=== PATIENT | female | born 1940 | race Caucasian/White ===

== ENCOUNTER → 2023-06-16 12:36 | Outpatient (REF) | payer MEDICARE, BC, SELFPAY | LOC: HWRAD 12:36 | PROVIDERS: ATTENDING PHYSICIAN Emergency Medicine | DX: M25.559 Pain in unspecified hip (principal) | CPT/HCPCS: 73502 ==

== ENCOUNTER → 2023-10-04 06:04 | Outpatient (REF) | payer MEDICARE, BC, SELFPAY | LOC: HWCARD 06:04 | PROVIDERS: ATTENDING PHYSICIAN Orthopaedic Surgery; FAMILY PHYSICIAN Emergency Medicine | DX: Z01.818 Encounter for other preprocedural examination (principal) | CPT/HCPCS: 93005 ==

== ENCOUNTER → 2023-10-18 11:12 | Outpatient (REF) | payer MEDICARE, BC, SELFPAY | LOC: HWRAD 11:12 | PROVIDERS: ATTENDING PHYSICIAN Nurse Practitioner Adult Health; FAMILY PHYSICIAN Emergency Medicine | DX: C83.00 Small cell B-cell lymphoma, unspecified site (principal); R10.9 Unspecified abdominal pain | CPT/HCPCS: 71260; 74177; Q9967 ==

== ENCOUNTER 2024-01-07 18:24 | Inpatient (IN) | payer MEDICARE, BC, SELFPAY ==
[2024-01-07 14:16] VITALS: BP 143/63; BMI 29.6
[2024-01-07 14:27] VITALS: BP 143/63
--- NOTE | 2024-01-07 14:47 | ED.GENMED ---
History of Present Illness
General
Chief Complaint: Musculo-Skeletal Complaint
Time Seen by Provider: 01/07/24 14:19
History of Present Illness
History of Present Illness:
83-year-old female with hypertension presents to the emergency department for evaluation of sudden onset of left hip pain. This morning. She has severe difficulty moving the hip secondary to pain. She is just over 2 months status post left
replacement performed by Dr. Sousa. States she had been doing well and had no pain up until this morning. Denies any falls or trauma. No fevers, chills, or night sweats.
Review of Systems
Review of Systems
Allergies reviewed?: Yes
All Other Systems: ROS reviewed and negative except as documented in HPI and ROS
Phy Exam
Physical Exam
Physical Exam:
GEN: Well appearing, NAD, WDWN
HEENT: Oral mucosa moist, no scleral icterus
Cardiac: Regular rate
Lung: No respiratory distress, no tachypnea
MSK: Moderate pain with passive flexion as well as internal/external rotation of the left hip. There is firmness without erythema or warmth to the inferior buttock region
Skin: Good color, no pallor or jaundice, no rashes
Neuro: AO x3, moves all extremities freely
Psych: Calm, cooperative
Course
Orders/Labs/Results
Orders:
Orders
01/07/24 14:46
Lower Ext left w Contrast CT [CT Lower Ext W/iv Cont Lt] Urgent
Comment:
Reason For Exam: L hip pain, ZOILA 10/23, ? fluid collection
01/07/24 15:01
CRP [C-Reactive Protein] Urgent
Complete Blood Count/With Diff Urgent
Comprehensive Metabolic Panel Urgent
ESR [Erythrocyte Sed Rate] Urgent
01/07/24 15:09
Morphine Sulfate 4 mg IV NOW STA
01/07/24 17:42
Admit/Transfer Patient As Directed
Co-Sign Provider:
Level of Care: Inpatient admission
Assign to:: Medical/Surgical
Physician / Group: booker
Diagnosis: intramuscular hematoma
Reason for Hospitalization: intramuscular hematoma
Expected length of stay greater than two midnights?: Yes
ELOS- Estimated Length of Stay in days: 2
I certify the patient meets the requirements for IP care: Yes
PRN Pain Medication Management As Directed
May give lesser potent ordered pain med per pt: Yes
preference::
Protocol:: Medication orders for pain may be administered in a
manner that supports deferring to patient preference
when the pt is:
- Requesting an ordered lesser potent pain medication.
Least to most potent pain medications are defined
as: acetaminophen < NSAID < tramadol < opioids
(morphine, oxycodone, hydromorphone).
- Requesting a lesser dose of the same medication IF
ORDERED.
- Requesting a less intrusive route of administration
if both routes are prescribed by the provider (PO <
IV).
01/07/24 17:43
Code Status As Directed
Resuscitation Status: Full Code
Abnormal Lab Results
01/07/24
15:01
RBC 3.81 L 10^6/uL
(4.20-5.40)
Hgb 11.7 L g/dL
(12.0-16.0)
Hct 34.2 L %
(37.0-47.0)
Absolute Neuts (auto) 7.7 H 10^3/uL
(1.4-6.5)
Absolute Lymphs (auto) 0.8 L 10^3/uL
(1.2-3.4)
Absolute Monos (auto) 0.8 H 10^3/uL
(0.1-0.6)
Neutrophils % 81.2 H %
(42.2-75.2)
Lymphocytes % 8.8 L %
(20.5-51.1)
Glucose 125 H mg/dl
(70-99)
C-Reactive Protein 22.70 H mg/L
(0.0-10.00)
Total Protein 5.9 L g/dl
(6.3-8.2)
01/07/24 15:01
01/07/24 15:01
Vital Signs
Initial and Last Documented VS:
Initial Vital Signs
Temp Pulse Resp BP Pulse Ox
98.5 F 81 18 143/63 95
01/07/24 14:16 01/07/24 14:16 01/07/24 14:16 01/07/24 14:16 01/07/24 14:16
Last Documented Vital Signs
Temp Pulse Resp BP Pulse Ox
98.5 F 81 18 140/64 96
01/07/24 14:16 01/07/24 14:16 01/07/24 14:16 01/07/24 16:56 01/07/24 17:15
MDM/Problems Addressed
MDM/Problems Addressed:
Although the fluid collection is suggestive of a hematoma on imaging the patient had no traumatic injuries or sudden muscular strains to suggest a hematoma. As she is unable to bear weight on the affected extremity we will admit her for IV
aspiration with fluid cultures and Gram stain, no antibiotics given so as not to disrupt fluid sampling.
*Critical Care Note
Total Time (30-74mins, 75-104mins- exclusive of procedures): Not Applicable
ED Attending Note
-
Portions of this chart may have been created with voice recognition software.� Occasional wrong word or��sound alike� substitutions may have occurred due to the inherent limitations of voice recognition software.
Discharge Plan
Departure
Patient Disposition: Admit
Date of Disposition: 01/07/24
Time of Disposition: 17:16
Admit to: Med/Surg
Presentation/result/management discussed w/ accepting MD/DO: Hospitalist
Discharge Problem:
Acute pain of left hip, r/o septic left hip prosthesis
Interventions
Interventions:
*Risk Screen - Suicide Last Done: 01/07/24 14:16
*General Assessment Last Done: 01/07/24 14:16
*Neglect/Abuse Screening Last Done: 01/07/24 14:16
ED- Fall Risk Assessment Last Done: 01/07/24 14:16
*ED COVID-19 Vaccine History Last Done: 01/07/24 14:16
ED-Musculoskeletal Assessment Last Done: 01/07/24 14:16
[2024-01-07 15:00] VITALS: BP 125/65
[2024-01-07] MEDS: MORPHINE SULFATE 4 MG IV (15:15)
[2024-01-07 15:17] LABS: % Basophils 0.4 % (0-2); % Eosinophils 0.5 % (0-6); % Immature Granulocytes 0.3 % (0-0.5); % Lymphocytes 8.8 % (20.5-51.1); % Monocytes 8.8 % (1.7-9.3); % Neutrophils 81.2 % (42.2-75.2); Absolute Eosinophils 0.1 10^3/uL (0-0.7); Absolute Lymphocytes 0.8 10^3/uL (1.2-3.4); Absolute Monocytes 0.8 10^3/uL (0.1-0.6); Absolute Neutrophils 7.7 10^3/uL (1.4-6.5); Hematocrit 34.2 % (37.0-47.0); Hemoglobin 11.7 g/dL (12.0-16.0); Mean Corp Hgb Conc. 34.2 g/dL (33.0-37.0); Mean Corpuscular Hgb 30.7 pg (27.0-31.0); Mean Corpuscular Volume 89.8 fL (81.0-99.0); Mean Platelet Volume 10.2 fL (7.4-10.4); Nucleated Red Blood Cells % 0 %; Platelet Count 181 10^3/uL (130-400); Red Blood Cell Count 3.81 10^6/uL (4.20-5.40); Red Cell Dist. Width 12.9 % (11.5-14.5); White Blood Cell Count 9.4 10^3/uL (4.8-10.8)
[2024-01-07 15:25] LABS: Erythrocyte Sed Rate 10 mm/hour (0-20)
[2024-01-07 15:33] LABS: ALT (SGPT) 14 U/L (0-35); AST (SGOT) 19 U/L (14-36); Alkaline Phosphatase 62 U/L (38-126); Blood Urea Nitrogen 15 mg/dl (7-17); Calcium 8.8 mg/dl (8.4-10.2); Carbon Dioxide 24 mmol/L (22-30); Chloride 105 mmol/L (98-107); Estimated Creatinine Clearance 69 ml/min; Glucose 125 mg/dl (70-99); Potassium 4.3 mmol/L (3.5-5.1); Sodium 140 mmol/L (135-145); Total Bilirubin 0.5 mg/dl (0.2-1.3); Total Protein 5.9 g/dl (6.3-8.2); eGFR > 60.00
[2024-01-07 16:56] VITALS: BP 140/64
--- NOTE | 2024-01-07 17:45 | HPS.HSE ---
Family Physician
-
Family Physician: * NONE
Chief Complaint
-
left hip pain
History of Present Illness
83-year-old female past medical history of hypertension, presenting with sudden onset of left hip pain which started this morning. Has been having difficulty moving the hip secondary to pain. She had left hip replacement performed by Dr. Sousa 2
months ago. She had been doing well without any pain until this point. She denies any falls or trauma. Denies fevers or chills or night sweats.
She drinks alcohol occasionally on the weekends. Denies smoking.
Medical History
Past Medical History
Past Medical History: Reports Other ( hypertension)
Past Surgical History: Reports Other (left hip surgery )
Social History
Tobacco: Non-smoker
Alcohol: Occasional
Drug: None
Family History
Family History: Not pertinent
Allergies / Home Medications
Allergies reflects when Allergies were last updated in [employer].
Home Medications with original date entered in [employer]
Allergy/Medication List:
Allergies
Allergy/AdvReac Type Severity Reaction Status Date / Time
codeine Allergy Unknown Vomiting Verified 01/07/24 15:10
Penicillins Allergy Unknown Unknown Verified 01/07/24 15:11
Home Medications
aspirin 81 mg capsule 81 mg PO DAILY 01/07/24
losartan 25 mg tablet 25 mg PO 2XD 01/07/24
Review of Systems
-
History Source: Patient
A 12 point ROS was completed and negative except as noted: Yes
Constitutional: Reports No Symptoms
EENT: Reports No Symptoms
Respiratory: Reports No Symptoms
Cardiac: Reports No Symptoms
Abdomen/GI: Reports No Symptoms
: Reports No Symptoms
Musculoskeletal: Reports No Symptoms
Skin: Reports No Symptoms
Neurological: Reports No Symptoms
Endocrine: Reports No Symptoms
Hematologic/Lymphatic: Reports No Symptoms
Psych: Reports No Symptoms
Physical Exam
Vital Signs
Vital Signs
Temp Pulse Resp BP Pulse Ox
98.5 F 81 18 140/64 96
01/07/24 14:16 01/07/24 14:16 01/07/24 14:16 01/07/24 16:56 01/07/24 17:15
Physical Exam
General: Well Developed, Well Nourished and No Apparent Distress
HEENT: NormoCephalic, Moist mucous membranes and Atraumatic
Respiratory: Clear
Cardiac: S1/S2 and Regular Rhythm; No Murmur or Rub
GI: Soft, Non Tender, Non Distended and Normal Bowel Sounds; No Organomegaly
Rectal: Deferred by Provider
Musculoskeletal: No Clubbing, No Cyanosis, No Edema and Other (left hip tenderness, swelling )
Skin: No Rash
Neuro: Nonfocal/grossly intact
Laboratory Results
-
01/07/24 15:01
01/07/24 15:01
Laboratory Results
Total Bilirubin 0.5 mg/dl (0.2-1.3) 01/07/24 15:01
AST 19 U/L (14-36) 01/07/24 15:01
ALT 14 U/L (0-35) 01/07/24 15:01
Alkaline Phosphatase 62 U/L (38-126) 01/07/24 15:01
Data Reviewed
-
Lab Data: Labs Reviewed by me
Old Records: Reviewed
Impression/Plan
-
IMPRESSION:
PLAN:
# Intramuscular hematoma versus abscess of left hip/proximal thigh
-As per CT scan there is a large fluid collection within posterior lateral deep soft tissues of the left hip/proximal thigh up to 7.4 x 8.9x 13.4 cm likely due to muscular hematoma
-Does not seem to be related to the hip surgery
-IR consulted for aspiration
-Hold aspirin for now
-Tylenol, Dilaudid for pain as needed
Left hip replacement 2 months ago
Essential hypertension
-Continue losartan
Full code
DVT prophylaxis�SCDs
Regular diet
[2024-01-07 20:17] VITALS: BP 171/74; BMI 28.8
[2024-01-07] MEDS: COZAAR 25 MG PO (21:38)
[2024-01-07] MEDS: DILAUDID 0.5 MG IV (22:02)
--- NOTE | 2024-01-07 22:30 | PTCARENOTE ---
Receive pt from ER. Pt alert oriented X3, states that she has left hip pain (710). Pt was able to pivot from the stretcher in the room to her bed. Pt states that she can't bear weight on the left foot because of the pain. Pt oriented to the room,
call dent within reach. HE=712/74, HR=82, ItZ7=650% on RA. Repeat EQ=266/73, HR=81. Pt given Dilaudid for pain. Couple minutes thereafter, pt complains that Dilaudid gave her headache, upset stomach and nausea. MANAGER [employer]NA[employer] made aware, ordered Zofran for
nausea. Pt refused to take medicine, states 'I don't want to take any more medicine'. Pt states that she had the same SX when was given morphine in ER, but the SX related to Dilaudid are more severe. Pt also complains that she didn't get any food
while in ER. A sandwich was offered to the pt, but pt did like that sandwich. Offered to give the pt other alternatives like jello, apple juice, crackers. Pt refused and wants to be left alone and try to lay down. Check on the pt in couple minutes,
pt was sleeping with a loud snoring. Will continue to monitor the pt.
[2024-01-08] VITALS: BP 142/82
[2024-01-08 07:17] VITALS: BP 122/56
[2024-01-08 07:51] LABS: % Basophils 0.4 % (0-2); % Eosinophils 1.1 % (0-6); % Immature Granulocytes 0.3 % (0-0.5); % Lymphocytes 10.6 % (20.5-51.1); % Neutrophils 77.6 % (42.2-75.2); Absolute Eosinophils 0.1 10^3/uL (0-0.7); Absolute Lymphocytes 0.8 10^3/uL (1.2-3.4); Absolute Monocytes 0.8 10^3/uL (0.1-0.6); Absolute Neutrophils 6.1 10^3/uL (1.4-6.5); Hematocrit 29.2 % (37.0-47.0); Hemoglobin 9.7 g/dL (12.0-16.0); Mean Corp Hgb Conc. 33.2 g/dL (33.0-37.0); Mean Corpuscular Hgb 29.6 pg (27.0-31.0); Mean Platelet Volume 10.2 fL (7.4-10.4); Nucleated Red Blood Cells % 0 %; Platelet Count 172 10^3/uL (130-400); Red Blood Cell Count 3.28 10^6/uL (4.20-5.40); White Blood Cell Count 7.9 10^3/uL (4.8-10.8)
[2024-01-08 08:22] LABS: ALT (SGPT) 11 U/L (0-35); AST (SGOT) 16 U/L (14-36); Albumin 3.7 g/dl (3.5-5.0); Alkaline Phosphatase 54 U/L (38-126); Blood Urea Nitrogen 14 mg/dl (7-17); Calcium 8.8 mg/dl (8.4-10.2); Carbon Dioxide 28 mmol/L (22-30); Chloride 103 mmol/L (98-107); Estimated Creatinine Clearance 59 ml/min; Glucose 124 mg/dl (70-99); Sodium 139 mmol/L (135-145); Total Bilirubin 0.5 mg/dl (0.2-1.3); Total Protein 5.4 g/dl (6.3-8.2); eGFR > 60.00
[2024-01-08] MEDS: COZAAR 25 MG PO ×2 (08:43→20:54)
--- NOTE | 2024-01-08 08:52 | W.PN.UPDATE ---
Update Note
Progress Note Update
Patient seen and examined with Jyoti Ghotra PA-C
Acute onset of left hip pain and difficulties with weight bearing without any trauma
CT scan negative for fracture. But, there is a significant fluid collection
Clinically, there is no erythema, no warmth, no pain with ROM of the hip. Able to straight leg raise
Agree with IR aspiration of the fluid and evaluate for cell count, gram stain and cultures
Hold antibiotics for now
--- NOTE | 2024-01-08 09:08 | CON.ORTHO ---
Consultation
-
Date/Time Consultation Requested: 01/07/2024
Date/Time Consultation Performed: 01/08/2024
Requesting Provider: Chris Mitchell PA-C
Performing Provider: Jyoti Ghotra PA-C for Dr. Clive Major
Reason for Consultation: Left hip hematoma s/p left ZOILA
Consultation - Orthopedics
History
HPI: This is an 83 year old female who woke up yesterday morning with significant left hip pain and inability to ambulate. She is now s/p left ZOILA with Dr. Sousa on 10/24/2023. She admits her rehab has been going smoothly and she was just
discharged from PT on . She denies any falls or trauma to her left hip, but did do some yard work on Tuesday that included string trimming weeds along her [place]. She woke on on Tuesday with significant pain and presented to the ED for
further evaluation. Labs have been normal with exception of mildly elevated CRP and she denies any pain, fever or chills prior to yesterday morning. A CT scan was performed, which demonstrated a large collection of fluid, which radiology feels to
be c/w a hematoma. She was admitted to the hospital due to her inability to ambulate and to proceed with IR aspiration of her left hip fluid collection. She reports her pain and swelling have improved since admission.
Past medical history: Significant for HTN.
Past surgical history: Left ZOILA.
Social history: Denies tobacco use. Occasional alcohol use. Lives at home with family.
Review of systems: All systems reviewed and negative except for those mentioned in HPI.
Allergies / Home Medications
Allergy/AdvReac Type Severity Reaction Status Date / Time
codeine Allergy Unknown Vomiting Verified 01/07/24 15:10
Penicillins Allergy Unknown Unknown Verified 01/07/24 15:11
�Medication �Instructions �Recorded
aspirin 81 mg capsule 81 mg PO DAILY 01/07/24
losartan 25 mg tablet 25 mg PO 2XD 01/07/24
Vital Signs / Lab Results
Temp Pulse Resp BP Pulse Ox
97.7 F 77 16 122/56 96
01/08/24 07:17 01/08/24 07:17 01/08/24 07:17 01/08/24 07:17 01/08/24 07:17
01/08/24 07:21
01/08/24 07:21
Physical examination:
General: WD/WN female in no acute distress. AAO x 4.
HEENT: AT/NC, neck supple.
Lungs: non labored breathing on room air. No audible wheezing.
Heart: RRR.
Left hip: Incision over lateral aspect of hip is c/d/i. No erythema or fluctuance. Diffuse tender over gluteal muscles and posterior thigh. No ecchymosis. ROM with mild pain on ER, otherwise full and pain free. Calf soft and non tender to
palpation. N/v intact distally.
Radiographic studies:
CT scan of the left hip shows evidence of a large mixed attenuation fluid collection within the posterolateral deep soft tissues of the left hip and proximal thigh that measures 7.4x8.9x13.4 cm likely representing an intramuscular hematoma.
Assessment / Plan
Assessment: Left hip pain, likely intramuscular hematoma.
Plan: Patient seen in tandem with Dr. Major. Yadira's imaging demonstrated an intramuscular fluid collection of her left hip/proximal thigh. Radiology believes the appearance is c/w hematoma, however, with her recent left ZOILA, we will proceed with
IR aspiration of the fluid collection and have the fluid sent for cell count, crystals, and C/S. She does not have an elevated WBC and CRP is only mildly elevated, so low concern for infection at this time. We will hold initiation of any
antibiotics until aspiration has been performed. She does report improvement in symptoms overnight, so I recommend continued ice and activity modification. She may do PT with weight bearing to tolerance, using assistive device if needed. We will
follow along with results of the aspiration to discuss continued recommendations.
--- NOTE | 2024-01-08 10:29 | W.PN.HOSP.TC ---
Today's Communication/Plan
-
see bold
Assessment / Plan
Assessment / Plan
Gen: NAD, awake and alert
Eyes: EOMI, PERRLA, no scleral icterus.
Neck: supple.
CV: RRR, +S1/S2, no m/r/g.
Resp: CTAB, no rales, wheezes, or rhonchi.
Abd: +BS, soft, NT, ND
Skin: No rashes.
Neuro: CN 2-12 intact, non-focal.
Psych: Normal mood and affect.
CT L-hip: Large mixed attenuation fluid collection within the posterolateral deep soft tissues of the left hip/proximal thigh, measuring up to 7.4 x 8.9 x 13.4 cm, likely intramuscular hematoma. The left hip prosthesis appears grossly intact. No
acute fractures or dislocation. Evaluation of additional soft tissue structures such as tendons and ligaments is limited by CT. Grossly, no abnormalities are seen.
Intramuscular hematoma versus abscess of left hip/proximal thigh:
-h/o L ZOILA 2 months ago
-As per CT scan there is a large fluid collection within posterior lateral deep soft tissues of the left hip/proximal thigh up to 7.4 x 8.9x 13.4 cm likely due to muscular hematoma
-Does not seem to be related to the hip surgery
-IR to perform joint aspiration today
-Holding aspirin for now
-Tylenol, Dilaudid for pain as needed
-appreciate ortho, no indication for orthopedic surgical intervention at this time. Dr. Major recommends holding off on abx.
-afebrile, no leukocytosis
Essential hypertension: Continue losartan
FULL/SCDs
Anticipated Discharge: 24 - 48 hours
Subjective/Interval History
-
Date of Service: January 08, 2024
Patient offers no new complaints.
Objective Data
-
Labs:
Laboratory Results
01/08/24
07:21
WBC 7.9
Hgb 9.7 L
Hct 29.2 L
Plt Count 172
Sodium 139
Potassium 4.0
Chloride 103
Carbon Dioxide 28
BUN 14
Creatinine 0.8
Glucose 124 H
Calcium 8.8
Total Bilirubin 0.5
AST 16
ALT 11
Alkaline Phosphatase 54
Vital Signs:
Vital Signs
Temp Pulse Resp BP Pulse Ox
97.7 F 77 16 122/56 96
01/08/24 07:17 01/08/24 07:17 01/08/24 07:17 01/08/24 07:17 01/08/24 07:17
[2024-01-08 11:20] VITALS: BP 111/50; BP_SYST 83
[2024-01-08 12:03] VITALS: BP 111/50; BP_SYST 83
--- NOTE | 2024-01-08 12:43 | CM ---
CM following re: discharge planning.
Reviewed pt's chart, met with pt.
Pt is an 83 year old female, admitted with primary dx of left hip pain.
Pt reports she lives with in a 2SH, 1 step to enter, has 2 children and [place]. Pt described herself as independent in all areas [employer]. No DME, VN or SNF history.
PT and OT will evaluate the pt to determine a level of care at discharge.
PCP: pt stated she does not have PCP and she does not want to have one.
Pharmacy: [facility]
d/C plan: most likely home with VN services if recommended by PT.
CM will follow with discharge plan updates as hospitalization progresses
[2024-01-08] MEDS: ULTRAM 50 MG PO ×2 (13:18→20:53)
[2024-01-08 15:00] VITALS: BP 112/51
[2024-01-08 23:12] VITALS: BP 115/47
[2024-01-09 08:34] VITALS: BP 121/45
[2024-01-09] MEDS: COZAAR 25 MG PO ×2 (09:11→21:28)
--- NOTE | 2024-01-09 10:21 | W.PN.UPDATE ---
Update Note
Progress Note Update
Patient feeling much better today than she has over the last 48 hours. Afeb. She was up walking around her room when I arrived. She was able to comfortably get herself back in the bed. Left hip exam essentially benign today. Aspirate from left
hip NGTD. would recommend activity as tolerated, possibly working with PT/OT prior to discharge. From an orthopedic standpoint we will continue to follow with the aspirate, but anticipate a discharge and outpatient follow-up.
--- NOTE | 2024-01-09 12:46 | W.PN.HOSP.TC ---
Today's Communication/Plan
-
follow gs/culture and ortho recs
DC planning in 24 hours
Assessment / Plan
Assessment / Plan
CT L-hip: Large mixed attenuation fluid collection within the posterolateral deep soft tissues of the left hip/proximal thigh, measuring up to 7.4 x 8.9 x 13.4 cm, likely intramuscular hematoma. The left hip prosthesis appears grossly intact. No
acute fractures or dislocation. Evaluation of additional soft tissue structures such as tendons and ligaments is limited by CT. Grossly, no abnormalities are seen.
Assessment:
Intramuscular hematoma versus abscess of left hip/proximal thigh:
-h/o L ZOILA 2 months ago
-As per CT scan there is a large fluid collection within posterior lateral deep soft tissues of the left hip/proximal thigh up to 7.4 x 8.9x 13.4 cm likely due to muscular hematoma
-Does not seem to be related to the hip surgery
-s/p IR aspiration 01/07 yielding 3 mL of old dark blood products. Cultures/GS NGTD.
-Holding aspirin for now
-Tylenol, Dilaudid for pain as needed
-appreciate ortho, no indication for orthopedic surgical intervention at this time. Dr. Major recommends holding off on abx.
-afebrile, no leukocytosis
-PT/OT
Essential hypertension: Continue losartan
DVT ppx: SCDs
Code: Full
Anticipated Discharge: Within 24 hours
Subjective/Interval History
-
Date of Service: January 09, 2024
reports some improvement in L hip/hematoma area pain
denies any new complaints otherwise
Objective Data
-
Vital Signs:
Vital Signs
Temp Pulse Resp BP Pulse Ox
98.2 F 64 18 121/45 97
01/09/24 08:34 01/09/24 09:11 01/09/24 08:34 01/09/24 09:11 01/09/24 08:34
I&O
01/08/24 01/09/24 01/10/24
06:59 06:59 06:59
Intake Total 1649
Balance 1649
Physical Exam
-
General: No Apparent Distress
HEENT: Normocephalic and Atraumatic
Respiratory: Negative Wheezes
Cardiac: Regular Rhythm and S1/S2
GI: Soft
Musculoskeletal: No Edema
Neuro: AO x 3
Psych: Calm
Data Reviewed
-
Total Time Spent with Patient (in minutes): 42
Labs: Labs Reviewed by me
[2024-01-09 15:20] VITALS: BP 117/70; PULSE 80; O2SAT 97
[2024-01-09 16:29] VITALS: BP 115/52
[2024-01-09] MEDS: TYLENOL 650 MG PO (22:30)
[2024-01-09 22:40] VITALS: BP 121/59
--- NOTE | 2024-01-10 06:30 | W.PN.UPDATE ---
Update Note
Progress Note Update
Patient seen and evaluated by orthopedic surgery this AM, resting comfortably in no acute distress. Patient reports that she is feeling much better. Aspirate from left hip without growth after 18 to 24 hours. Recommend activity as tolerated,
possibly working with PT/OT prior to discharge. From an orthopedic standpoint, we will continue to follow the aspirate, but anticipate discharge and outpatient follow-up. All questions were answered.
[2024-01-10 07:35] VITALS: BP 126/61
[2024-01-10 07:46] LABS: Hemoglobin 9.7 g/dL (12.0-16.0); Mean Corp Hgb Conc. 33.4 g/dL (33.0-37.0); Mean Corpuscular Hgb 30.1 pg (27.0-31.0); Mean Corpuscular Volume 90.1 fL (81.0-99.0); Mean Platelet Volume 10.2 fL (7.4-10.4); Platelet Count 178 10^3/uL (130-400); Red Blood Cell Count 3.22 10^6/uL (4.20-5.40); White Blood Cell Count 4.6 10^3/uL (4.8-10.8)
[2024-01-10 08:11] LABS: Blood Urea Nitrogen 18 mg/dl (7-17); Calcium 9.1 mg/dl (8.4-10.2); Carbon Dioxide 29 mmol/L (22-30); Chloride 104 mmol/L (98-107); Estimated Creatinine Clearance 53 ml/min; Glucose 99 mg/dl (70-99); Sodium 141 mmol/L (135-145); eGFR > 60.00
--- NOTE | 2024-01-10 08:18 | PN.CDI ---
CDI
- -
CDI:
Physician Documentation Request
Admit Date: 01/07/24 18:24
Dear Doctor Gabriel,
Clinical Indicators:
Patient admitted with left hip pain.
01/[address], 'Large mixed attenuation fluid collection within the posterolateral deep soft tissues of the left hip/proximal thigh, measuring up to 7.4 x 8.9 x 13.4 cm, likely intramuscular hematoma.'
01/08 PN, ' Intramuscular hematoma versus abscess of left hip/proximal thigh...-s/p IR aspiration 01/07 yielding 3 mL of old dark blood products. Cultures/GS NGTD. '
Hgb/Hct trend:
01/07/24 01/08/24
15:01 07:21
Hgb 11.7 L 9.7 L
Hct 34.2 L 29.2 L
Based on the above, could you clarify in the progress notes, the appropriate diagnosis, if significant, that supports the above abnormalities and additional evaluation, monitoring and/or treatment rendered:
Acute blood loss anemia
Other anemia, please specify
Abnormal lab values, clinically insignificant
Other, please specify
Use of terms such as suspected, likely, concern for, or probable (associated with a specific diagnosis that is being evaluated, monitored, or treated as if it exists) are acceptable and can be coded in the inpatient setting, when documented at the
time of discharge.
Thank you,
Brissa Mari RN BSN
CDI Specialist
available via tiger text
Please use your independent medical judgment in providing your response.
--- NOTE | 2024-01-10 08:35 | W.PN.HOSP.TC ---
Today's Communication/Plan
-
dc to home/vN
OP ortho f/u in 3 weeks
Assessment / Plan
Assessment / Plan
CT L-hip: Large mixed attenuation fluid collection within the posterolateral deep soft tissues of the left hip/proximal thigh, measuring up to 7.4 x 8.9 x 13.4 cm, likely intramuscular hematoma. The left hip prosthesis appears grossly intact. No
acute fractures or dislocation. Evaluation of additional soft tissue structures such as tendons and ligaments is limited by CT. Grossly, no abnormalities are seen.
Assessment:
Intramuscular hematoma versus abscess of left hip/proximal thigh:
-h/o L ZOILA 2 months ago
-As per CT scan there is a large fluid collection within posterior lateral deep soft tissues of the left hip/proximal thigh up to 7.4 x 8.9x 13.4 cm likely due to muscular hematoma
-Does not seem to be related to the hip surgery
-s/p IR aspiration 01/07 yielding 3 mL of old dark blood products. Cultures/GS NGTD x 48 hours.
-Holding aspirin going forward
-Tylenol, Tramadol for pain as needed
-appreciate ortho, no indication for orthopedic surgical intervention at this time. Dr. Major recommends holding off on abx.
-afebrile, no leukocytosis
-PT/OT - home VN
- OP Ortho f/u in 3 weeks
Essential hypertension: Continue losartan
Acute blood loss anemia
- No indication for transfusion
DVT ppx: SCDs
Code: Full
More than 30 minutes spent in discharge including
Final examination of the patient
Summarizing hospital stay
Instructions for continuing care to all relevant caregivers
Preparation of discharge records, prescriptions, and referral forms
Total time spent (in minutes): 41
Anticipated Discharge: Today
Subjective/Interval History
-
Date of Service: January 10, 2024
ambulating ok, denies any pain when resting
Objective Data
-
Labs:
Laboratory Results
01/10/24
07:07
WBC 4.6 L
Hgb 9.7 L
Hct 29.0 L
Plt Count 178
Sodium 141
Potassium 4.0
Chloride 104
Carbon Dioxide 29
BUN 18 H
Creatinine 0.9
Glucose 99
Calcium 9.1
Vital Signs:
Vital Signs
Temp Pulse Resp BP Pulse Ox
98.4 F 74 18 121/59 96
01/09/24 22:40 01/09/24 22:40 01/09/24 22:40 01/09/24 22:40 01/09/24 22:40
I&O
01/09/24 01/10/24 01/11/24
06:59 06:59 06:59
Intake Total 1650 / 1650 300 / 300
Balance 1650 / 1650 300 / 300
Physical Exam
-
General: No Apparent Distress
HEENT: Normocephalic and Atraumatic
Respiratory: Negative Wheezes
Cardiac: Regular Rhythm and S1/S2
GI: Soft
Genito-urinary: No Costovertebral Tender
Neuro: AO x 3
Hematologic / Lymphatic: No Lymphadenopathy
Psych: Calm
Data Reviewed
-
Total Time Spent with Patient (in minutes): 41
Labs: Labs Reviewed by me
[2024-01-10] MEDS: COZAAR 25 MG PO (09:46)
--- NOTE | 2024-01-10 10:35 | W.DS.TRANS ---
DC Summary - Or Nurse Manager
-
Discharge Instructions:
Discharge Diagnosis/Procedures intramuscular hematoma, recent ZOILA 2 months
prior. anemia from hematoma/blood loss
Diet Regular
Activity As tolerated,With Walker
Additional Activity with walker assistance
Driving Restrictions Not until seen by your Dr
Bathing Restrictions None
Other Services PT,OT,VN
Instructions:
Stand-Alone Forms:
Changes to Home Medications: Yes
Discharge Medications:
DC Medications w/original date entered in beqom
acetaminophen 325 mg tablet 650 mg (2 x 325 mg) PO Q4HPRN PRN mild pain/RO/temp> 100.4F #100 tabs 01/10/24
losartan 25 mg tablet 25 mg PO BID Blood Pressure #0 tabs 01/10/24
tramadol 50 mg tablet 50 mg PO Q6HPRN PRN MODERATE-SEVERE PAIN #20 tabs 01/10/24
Home Medication Changes
stop aspirin
Pending Results: No
Total time spent discharging patient (in min): 42
[2024-01-10 11:50] VITALS: BP 159/82
[2024-01-10 12:06] VITALS: BP 159/82
--- NOTE | 2024-01-10 13:02 | CM ---
Addendum entered by Merry Petty 01/10/24 15:47:
CM contacted Yadira who advised that Dr. Sousa's office would be able to identify which agency she had previously. Call to the office and advised she previously had [facility] services. Referral sent via [facility] per pt's request and they will
contact Yadira via telephone.
Original Note:
CM attempted to speak with Yadira prior to discharge today, however she had already scheduled an Uber ride home and was in a hurry. Call to Yadira and reviewed IMM; she gave verbal consent and declined receiving a copy of the form, as she is familiar
with it. Ai advised that she has caregivers from [facility] and had home care in the past, but unsure what agency provided the services. She is going to look for information and asked that I call back later this afternoon.
Yadira advised that she has seen her PCP in August and/or September 2023, Dr. Ruvalcaba. She did not want to put her on the record due to a disagreement with someone in the office. Yadira is agreeable to Dr. Ruvalcaba's oversight of home care services. I
called the office ([phone]) and spoke with Imani who will discuss with Dr. Ruvalcaba and call me back.
CM to continue to follow to determine choice of VN and physician oversight.
== END 2024-01-10 12:22 | disposition home health service (06) | DRG 605 ==
LOC: 4 EAST ACU 18:24
PROVIDERS: Physician Assistant; Radiology Vascular & Interventional Radiology; ADMITTING PHYSICIAN Hospitalist; ATTENDING PHYSICIAN Internal Medicine; EMERGENCY PHYSICIAN Emergency Medicine; OTHER PHYSICIAN Orthopaedic Surgery
PROC: 0S9B30Z Drainage of Left Hip Joint with Drainage Device, Percutaneous Approach (ICD-10-PCS; 2024-01-08)
DX: S70.02XA Contusion of left hip, initial encounter (principal); D62 Acute posthemorrhagic anemia; M96.840 Postprocedural hematoma of a musculoskeletal structure following a musculoskeletal system procedure; M97.02XA Periprosthetic fracture around internal prosthetic left hip joint, initial encounter; I10 Essential (primary) hypertension; Z96.642 Presence of left artificial hip joint; Y83.1 Surgical operation with implant of artificial internal device as the cause of abnormal reaction of the patient, or of later complication, without mention of misadventure at the time of the procedure
CPT/HCPCS: 10160; 73701; 76942; 80048; 80053; 85025; 85027; 85652; 86140; 87015; 87070; 87205; 96374; 97162; 97166; 99285; Q9967

== ENCOUNTER 2024-09-12 15:37 | Day surgery (SDC) | payer MEDICARE, BC, SELFPAY ==
[2024-09-12] VITALS (17 sets, daily range): BP systolic 118–167; BP diastolic 53–109; PULSE 66; O2SAT 95
--- NOTE | 2024-09-12 11:05 | ED.MUSCINJ ---
HPI-Injury
General
Chief Complaint: Musculo-Skeletal Complaint
Source: patient and ambulance crew
Exam Limitations: none
Time Seen by Provider: 09/12/24 10:53
Nursing documentation reviewed up to this point in time: agreed with
History of Present Illness-Injury
Initial Injury comments:
Note:
CHIEF COMPLAINT(S)
Left hip pain and possible dislocation.
HISTORY OF PRESENT ILLNESS
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 She presented following an incident during a yoga class where she was in a [place] 2 position with the leg extended,
which she commonly does. The leg suddenly collapsed, causing her to fall. She reports localized pain in the left hip with no pain elsewhere. The suspicion of hip dislocation was noted, and the plan is to confirm with an x-ray. The patient has a
history of fluid accumulation related to the hip surgery, previously causing issues.
The patient has expressed a significant level of discomfort localized to the hip and has requested pain relief. She is allergic to codeine, which causes nausea, and will be administered anti-nausea medication alongside Dilaudid for pain management.
CHRONIC MEDICAL CONDITIONS SIGNIFICANTLY AFFECTING CARE
Hypertension managed with ARBs.
History of lymphoma treated with chemotherapy about seven years ago. The patient takes aspirin as part of management post-chemotherapy.
ALLERGIES
Codeine - causes nausea.
PAST MEDICAL HISTORY
Lymphoma treated with chemotherapy about seven years ago.
PAST SURGICAL HISTORY
Left hip replacement for arthritis in October of the previous year by Dr. Sousa.
Bilateral cosmetic eyelid surgery.
SOCIAL HISTORY
Denies regular alcohol consumption, drinks occasionally.
Denies use of non-prescribed drugs..
MEDICATIONS
Losartan for hypertension.
Aspirin following lymphoma chemotherapy.
REVIEW OF SYSTEMS
- Musculoskeletal: Left hip pain, possible dislocation.
- Gastrointestinal: Nausea associated with codeine.
PHYSICAL EXAM
- Cardiac: Clear heart sounds with S1-S2, no murmur.
- Respiratory: Clear lung sounds.
- Musculoskeletal: Left hip internally rotated with no other signs of trauma; normal distal pulses in all extremities. No edema noted.
Nursing notes reviewed and vital signs reviewed.
PROBLEM LIST
Acute: Possible left hip dislocation.
Chronic: Hypertension, history of lymphoma.
PLAN
Obtain an x-ray to assess potential dislocation of the left hip.
Administer Dilaudid for pain management and anti-nausea medication to mitigate side effects from previous medications.
Execute sedation and reduction of hip dislocation following patient consent to the procedure.
DIFFERENTIAL DIAGNOSIS
The Differential Diagnosis includes, in no particular order and is not limited to:
1. Hip dislocation.
2. Fracture of the hip or pelvis.
3. Soft tissue injury or muscle strain.
4. Osteoarthritis exacerbation.
5. Trochanteric bursitis.
6. Avascular necrosis of the hip.
7. Recurrent hip replacement complications.
8. Hip joint infection.
9. Greater trochanteric pain syndrome.
10. Rheumatoid arthritis flare.
CARE-UPDATE
09/12/24 - 12:00
Patient reports that the medication is not providing relief. X-ray confirms a hip dislocation without fracture. Plan is to perform hip reduction under sedation. Patient informed about need for a ride home post-procedure, as Uber is not permitted.
Case management to assist due to patients caregiving responsibilities for spouse. Expecting a three-hour stay. Consent for sedation and possible use of blood products discussed and obtained, with emergency intubation being a rare possibility.
Patient has a cell phone to arrange transportation and needs to contact spouse.
CARE-UPDATE
09/12/24 - 13:[address] Crisostomo; patient will be taken to OR for closed reduction. Patient to remain NPO in preparation for the procedure. Unsuccessful reduction attempted in ED.
Disposition:
SUMMARY OF ENCOUNTER
The patient, an 84-year-old female with a history of left hip replacement, presented to the emergency department with concerns of a possible dislocation following an incident during a yoga class. An x-ray confirmed the left hip dislocation. Initial
treatment in the ED included pain management with Dilaudid and anti-nausea medication. A previous attempt at reduction in the ED was unsuccessful.
MANAGEMENT OF THE PATIENTS CARE WAS DISCUSSED WITH
Dr. Crisostomo was consulted, and it was decided to take the patient to the operating room for further evaluation and management of the dislocated hip.
PLAN
The plan is to perform a closed reduction of the left hip dislocation in the operating room.
INDEPENDENT INTERPRETATION OF TESTS
My independent interpretation of the x-ray confirms a left hip dislocation without fracture.
PROCEDURES
Patient is scheduled to be transferred to the operating room for a closed reduction of the left hip dislocation.
PATIENT EDUCATION AND COUNSELING
The patient was informed about the need for transportation post-procedure and arrangements due to caregiving responsibilities.
MEDICATION RECONCILIATION
The patient was administered Dilaudid for pain and anti-nausea medication during the ED visit.
MEDICAL DECISION MAKING
Number and Complexity of Problems Addressed: The patient presented with an acute issue of a left hip dislocation with a chronic history of hip replacement.
Data: X-ray results were analyzed to confirm the dislocation and impacted the treatment plan.
Risk: The patients care was influenced by potential hospitalization, social responsibilities, and procedure-related risks. Consent for sedation and possible use of blood products, along with transportation arrangements, were considered in the care
plan.
Phy Exam
Physical Exam
Physical Exam:
.
Injury Course
Orders/Labs/Results
Orders:
Orders
09/12/24 Breakfast
NPO
Allow oral meds: No
Allow clear liquids: No
09/12/24 11:03
HYDROmorphone [Dilaudid] 0.5 mg IV NOW STA
Ondansetron Injectable [Zofran] 4 mg IV NOW STA
09/12/24 11:04
IV Insert/Care/Rem.- Treatment PRN
Hip, Left 2-3 Views [CR Hip - LT w/wo Pel 2-3 Vw*] Urgent
Comment:
Reason For Exam: left hip pain while doing yoga
Include a pelvis x-ray?: Yes
09/12/24 12:01
Case Management Consult ONCE
Case Management Consult: VN/Home Care
Requested By:: PHYSICIAN
Comment: pt cares for at home, pt dislocated hip today, may need home health assistance
09/12/24 12:02
ASA Classification Routine
Propofol [Diprivan] 80 mg IV NOW STA
09/12/24 12:23
CR Hip - LT without Pel 1 Vw Urgent
Comment: portable room 28
Reason For Exam: Hip dislocation
09/12/24 13:01
CT Pelvis W/o Iv Contrast Urgent
Comment:
Reason For Exam: left hip pain
Procedures
Moderate Sedation
ASA Risk Score: Class II
Chart and allergies reviewed: Yes
Consent for anesthesia obtained: Yes
Time out completed (validating right patient & procedure): Yes
Moderate Sedation Start Time(when first medication is given): 12:15
History of difficult intubation: No
Airway free of obstruction: Yes
Patient has a gag reflex: Yes
Patient is able to open mouth: Yes
Patient has no dentures: Yes
Patient has no loose teeth: Yes
Medication administered by Provider during Moderate Sedation: IV Propofol (mg)
Total dose administered: 180
Time drug administered: 12:15
Moderate Sedation Procedure End Time: 12:35
Joint/Fracture Reduction
Left Hip:
Indication for procedure:: left hip dislocation
Procedure completed by: Mike
Consent form signed: Yes
Joint reduced: with anesthesia sedation
Anesthesia/sedation: Moderate sedation
Injury was: closed
Further treatement: needs further treatment
Post reduction exam: stable
Capillary Refill: normal
Normal distal neurovascular exam?: Yes
Peripheral Pulses: dorsalis pedis (left): 4+
*Critical Care Note
Total Time (30-74mins, 75-104mins- exclusive of procedures): Not Applicable
ED Attending Note
-
Portions of this chart may have been created with voice recognition software.� Occasional wrong word or��sound alike� substitutions may have occurred due to the inherent limitations of voice recognition software.
Discharge Plan
Departure
Patient Disposition: OR
Date of Disposition: 09/12/24
Time of Disposition: 13:02
Admit to: OR
Presentation/result/management discussed w/ accepting MD/DO: Orthopedics, Dr. Crisostomo
Patient with high blood pressure during this ER visit?: Yes
Condition: Good
Discharge Problem:
Closed dislocation of left hip
Prescriptions:
No Action
losartan 25 mg Tablet
25 mg PO BID Qty: 0 0RF
Referrals:
NONE,* [Family Provider, Internal Medicine]
Interventions
Interventions:
*General Assessment Last Done: 09/12/24 11:56
*Neglect/Abuse Screening Last Done: 09/12/24 10:35
ED-Musculoskeletal Assessment Last Done: 09/12/24 10:35
Discharge Date and Time
Print Language: BARBADIAN
[2024-09-12] MEDS: ZOFRAN 4 MG IV (11:07)
[2024-09-12] MEDS: DILAUDID 0.5 MG IV ×2 (11:07→14:21)
--- NOTE | 2024-09-12 13:16 | W.PN.UPDATE ---
Update Note
Progress Note Update
Left ZOILA dislocation for OR later today for closed reduction. CT scan now and NPO.
--- NOTE | 2024-09-12 14:48 | CM ---
CM consult in ED, reviewed chart and met with pt in ED.
Pt lives with her in multistory home, [address], first floor bath. Independent at home.
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
Pt denies hx of dangerous behaviors
Pt has not been able to reach her by phone but states that is not unusual.
CM offered to contact police department to do wellness check but she declined.
Pt states she has a friend who can check on her and also pick her up from the hospital.
Pt has spoken to her daughter who is in [place] who was going to reach out to pt's son who lives in [place], offered to reach out to son but she declined.
Pt anticipates going home after surgery later today.
Physician and nurse updated.
== END 2024-09-12 18:01 | disposition home or self-care (01) ==
LOC: SDS 15:37
PROVIDERS: ATTENDING PHYSICIAN Orthopaedic Surgery; EMERGENCY PHYSICIAN Emergency Medicine
DX: T84.021A Dislocation of internal left hip prosthesis, initial encounter (principal); Y79.2 Prosthetic and other implants, materials and accessory orthopedic devices associated with adverse incidents; S70.02XA Contusion of left hip, initial encounter; W19.XXXA Unspecified fall, initial encounter; Y93.42 Activity, yoga
CPT/HCPCS: 27266; 72192; 73501; 73502; 76000; 96374; 96375; 96376; 97163; 99285